=== PATIENT | male | born 2000 | race Asian ===

== ENCOUNTER 2025-09-22 15:13 | Emergency (ER) | payer BC, SELFPAY ==
[2025-09-22 15:48] LABS: #Basophils 0.04 10x3/uL (0.0-0.2); #Eosinophils Less than 0.03 10x3/uL (0.0-0.7); #Monocytes 0.69 10x3/uL (0.11-0.59); #Neutrophils 4.04 10x3/uL (1.40-6.50); %Basophils 0.8 % (0.0-1.0); %Eosinophils 0.2 % (0.0-10.0); %Lymphocytes 8.7 % (21.0-51.0); %Monocytes 13.0 % (0.0-10.0); %Neutrophils 76.0 % (42.0-75.0); Hematocrit 37.1 % (42.0-52.0); Hemoglobin 12.5 g/dL (14.0-18.0); Mean Corpuscular Hemoglobin 32.3 pg (27.0-31.0); Mean Corpuscular Volume 95.9 fL (78.0-98.0); Platelet Count 178 10x3/uL (130-400); Red Blood Cell (RBC) Count 3.87 mill/uL (4.70-6.10); White Blood Cell (WBC) Count 5.31 10x3/uL (4.8-10.8)
[2025-09-22 16:21] LABS: ALT (SGPT) 166 U/L (Less than 45); AST (SGOT) 117 U/L (11-34); Albumin 4.4 g/dL (3.1-4.5); Alkaline Phosphatase 92 U/L (40-110); Anion Gap 24 mmol/L (10-20); BUN (Urea Nitrogen) 10 mg/dL (8.9-20.6); Bilirubin, Total 0.7 mg/dL (0.3-1.2); CK (CPK) 109 U/L (30-200); Calc. Creatinine Clearance 0 mL/min (70-130); Calcium 10.3 mg/dL (7.8-10.44); Carbon Dioxide 18 mmol/L (22-29); Chloride 99 mmol/L (98-107); Globulin 2.8 g/dL (2.4-3.5); Glucose 142 mg/dL (70-105); Potassium 3.5 mmol/L (3.5-5.1); Sodium 137 mmol/L (136-145)
[2025-09-22 16:22] LABS: Acetaminophen Less than 10 mcg/mL (Less than 10); Salicylate Less than 8.0 mg/dL (Less than 8.0)
[2025-09-22 16:49] LABS: CAUTI Indications for Culture Alt mental st,lethar; Glucose, Urine (Dipstick) Normal (Negative); Leukocyte Negative Leu/uL (Negative); Protein, Urine (Dipstick) 50 mg/dL (Neg-Trace); RBC/HPF 0-3 HPF (0-3); Specific Gravity, Urine 1.021 (1.002-1.036); WBC/HPF 0-3 HPF (0-3)
[2025-09-22 16:51] LABS: Bacteria/HPF 1+ HPF (None Seen)
[2025-09-22 16:52] LABS: Urine Culture Reflex No No
[2025-09-22 16:55] LABS: Cocaine Metabolite Screen Negative (Negative); THC/Cannabinoid Screen Negative (Negative); Tricyclic Screen Negative (Negative)
== END 2025-09-22 22:29 | disposition home or self-care (01) ==
LOC: ERS 15:13
DX: R94.5 Abnormal results of liver function studies (principal); I10 Essential (primary) hypertension; Z79.899 Other long term (current) drug therapy; Z55.6 Problems related to health literacy
CPT/HCPCS: 51701; 70450; 80053; 80306; 80307; 81001; 82550; 84484; 85025; 93005